=== PATIENT | male | born 1965 | race Caucasian/White ===

== ENCOUNTER 2017-07-11 03:11 | Inpatient (IN) | payer OTHER ==
[~2017-07-11] VITALS: Ht 182.9 cm; Wt 95.3 kg
[~2017-07-11 03:11] MED LIST: CYMBALTA60 MG PO; DILAUDID 4 MG TA4 MG PO; MULTIVITAMIN1 TAB PO; NEURONTIN800 M1 PO; OXYCONTIN20 M1 PO; OXYCONTIN20 MG PO; PERCOCET 5-3251 EACH PO; ROBAXIN-750750 M1 PO; ROBAXIN-750750 MG PO; VITAMIN C500 M3 PO
--- NOTE | 2017-07-11 13:12 | RADIOLOGY REPORT ---
EXAMINATION: CR LUMBAR SPINE CLINICAL INFORMATION: L3-S1 TLI F. COMPARISON: None TECHNIQUE: Single lateral view of the lumbar spine was performed. FINDINGS: A forceps is seen overlying the posterior elements of the L5 vertebral body. IMPRESSION: Localization of the posterior elements of L5.
--- NOTE | 2017-07-11 14:11 | Operative Report ---
Operative/Inv Procedure Report Surgery Date: 07/11/17 Name of Procedure: L3, 4, 5 S1 complete laminectomies, bilateral osteotomies L34 L4 5 L5-S1. L3 4 TLIF, L4 5 TLIF, L5-S1 TLIF. Insertion of L3 4 interbody 12 x 28 mm titanium cage. Insertion of L4 5 11 x 28 interbody cage. Insertion of L5-S1 9 x 28 mm interbody cage. L3-L4- L5-S1 posterior lateral arthrodesis utilizing autologous bone graft iliac crest graft aspirate. L3 4 L5-S1 posterior lateral segmental Ezra titanium instrumentation. Procedure performed stereotactically. Resection of L4 5 synovial cyst via laminectomy. Pre-Operative Diagnosis: Lumbar spondylosis lumbar degenerative disc disease lumbar disc herniation Post-Operative Diagnosis: same Estimated Blood Loss: 800cc Surgeon/Certified Master Locksmith: Patel Kerr MD and Ying Hoffmann MD Anesthesia: general endotracheal tube Operative/Procedure Note Note: Patient was brought into the operating room after undergoing endotracheal intubation Hauser catheterization Venodyne's were placed over both lower extremities. Patient was placed prone the back was kept flat on an OSI table all bony prominences well-padded. The back was prepped with Betadine soap and solution and draped in usual sterile fashion. An incision was made in the midline between the L3 and the S1 vertebra and developed down to the length subcutaneous teeniest tissues. The paraspinal muscles were mobilized out laterally to the level of the transverse processes exposing the L3 L4 L5 transverse process and the ala of S1. This point working with a bone scalpel the lamina of L3 L4 L5 and top of S1 were resected complete with complete foraminotomies and bilateral osteotomies at each level LIII 4 L4 5 and L5-S1. The bone was harvested morcellized and later use in the arthrodesis. The more us separate stab incision was made over the right iliac crest and iliac crest graft aspirate was now mixed in with the autologous bone graft for the arthrodesis. The disc spaces were now entered at L3 4 L4 5 and L5-S1 with an 11 blade and removed a combination of straight and curved rongeurs and straight and curved curettes. The endplates were now partially decorticated and the cartilaginous end plates were removed at L3 4 L4 5 and L5-S1. At L3 4 1 12 x 28 mm interbody cage was centrally filled with autologous bone graft. The space was packed with autologous bone graft and then the cage was tapped across the midline. Similarly at L45 the disc space was packed with autologous bone graft and a titanium cage was centrally packed and tapped across the midline. At L5- S1 a titanium cage was packed with autologous bone graft and after putting autologous bone graft and the interspace was tapped across the midline as well. Copious amounts of bacitracin irrigation were used. This point the transverse processes were decorticated L3 L4-L5 and S1 and morselized bone was placed over the decorticated surfaces posterolaterally. Steritek the coordinates were obtained and under stereotactic guidance pedicle screws and now placed at L3 L4 L5 and S1 bilaterally. Screws by [employer] titanium instrumentation. Screws were all stimulated and found to stimulate above 20 mA. 2 rods were now secured to the polyaxial screws under compression. A #7 flat KARLA drain was placed and removed through separate stab incision. The paraspinal muscles and fascia were reapproximated using interrupted 0 Vicryls inverted 2-0 Vicryl subcutaneous teeniest tissues and then subcuticular closure for the skin. She was taken extubated to the recovery room having tolerated procedure well.
--- NOTE | 2017-07-11 14:45 | Operative Report ---
Operative/Inv Procedure Report Surgery Date: 07/11/17 Name of Procedure: 1. Bilateral L3, L4, L5 pars osteotomies 2. Wide L3, L4, L5, S1 laminectomy, complete L3/4, L4/5, L5/S1 facetectomies, far lateral discectomies, resection of right L4/5 synovial cyst 3. L3/4, L4/5, L5/S1 transforaminal lumbar interbody fusion with Ezra tritanium interbody cages, autograft, iliac crest bone marrow aspirate 4. L3/4, L4/5, L5/S1 posterior lateral arthrodesis with Ezra deidra 3 pedicle screws and rods, autograft, iliac crest bone marrow aspirate 5. O arm neuro navigation 6. Right iliac crest bone marrow aspirate Pre-Operative Diagnosis: L3 4, L4 5, L5-S1 severe spinal stenosis, advanced facet arthrosis, spondylosis Post-Operative Diagnosis: same Estimated Blood Loss: 1100cc Surgeon/Stoker Erector: Shun INGRAM,Patel Merritt MD Anesthesia: general endotracheal tube Monitors: neurophysiologic monitoring IV Fluids: 2200 cc crystalloid, 600cc cell saver Implants: ezra Urine Output: 350cc via fish Drains: med HV Specimens: L3/4, L4/5, L5/S1 disc material, right L4/5 synovial cyst Microbiology: none Tourniquet: none Complications: none Condition: stable Operative Indication: Patient is a 51-year-old gentleman status post a work injury who presents with intractable back and bilateral lower extremity pain and paresthesias which has failed to respond to a prolonged course of comprehensive conservative treatment. Imaging studies identify multilevel lumbar degenerative changes with spinal stenosis at L3 4, L4 5, and L5-S1 including significant foraminal compression of the exiting roots. In light of the patient's failure to respond to nonoperative treatment, he now presents for surgical decompression and instrumented fusion from L3 to S1. Operative/Procedure Note Note: Patient was taken the operating room. After appropriate patient identification and surgical timeout, neurophysiologic monitoring leads were placed and baseline recordings were obtained. The patient then underwent the smooth induction of general endotracheal anesthesia without incident. Following intubation monitoring was stable. A Fish catheter was sterilely inserted. DVT prophylaxis was utilized throughout the case. Patient was given 1 g of IV vancomycin in Preoperative Prophylaxis. With All Tubes and Lines Secured, the Patient Was Carefully Turned to the Prone Position on the Diogenes Frame Taking Care to Ensure That All Pressure Points Were Well-Padded. Monitoring Was Stable Following the Turn.The Low Back Was Widely Prepped and Draped Usual Sterile Fashion Using Probe Iodine Solution. A Vertical Midline Skin Incision Was Marked from L3 to the sacrum and Infiltrated with 10 ML of Local Anesthetic. Skin incision was made with a 10 blade knife. Dissection was carried down through subcutaneous tissue with the Bovie to the lumbodorsal fascia. The fascia was incised and a subperiosteal dissection of the lumbar paravertebral muscles was performed exposing the underlying spinous processes lamina and facets from L3 to S1 bilaterally and self-retaining retractors were placed beneath the muscle. A [place] 4 elevator was placed under the presumed L4 lamina and intraoperative lateral lumbar x-rays obtained to confirm the correct level. With the correct level verified, we then proceeded to expose the transverse processes from L3 to L5 as well as the sacral ala bilaterally and they were decorticated with a high-speed drill. The joints were noted to be markedly hypertrophic and a Synovial cyst off the right L4 5 facet was encountered and resected. The Specimen sent to the back table. We then focused our attention to the decompression. A complete laminectomy from L3 to S1 was completed using a combination of the bone scalpel, small straight and angled curettes and Kerrison rongeurs. Thickened ligamentum flavum was gently elevated and resected allowing excellent decompression of the thecal sac. Bilateral pars osteotomies were then performed at L3, L4, and L5 using combination the bone scalpel and a Kerrison rongeurs and total facetectomies were completed. All bone was saved and passed to the back table for subsequent arthrodesis. Pedicles were skeletonized at L3, L4, L5, and S1 bilaterally and the exiting and traversing roots were widely decompressed on both sides. We then focused our attention to the discectomies. Using a far lateral approach , discectomies were completed at L3/4 and L5-S1 from the patient's left side and at L4 5 from the patient's right side corresponding to the areas of greatest foraminal compression. The dural sac was gently mobilized to the midline, the underlying disc annulus was coagulated with a bipolar and incised in a rectangular fashion with an 11 blade knife and discectomies were completed with small straight and angled curettes pituitary rongeurs disc space celia and rasps until all the cartilaginous endplates were removed at all 3 levels. 20 mL of right iliac crest bone marrow aspirate was then taken via a Jamshidi needle and added to the morcellated autograft. We next focused our attention to the interbody arthrodesis. Beginning at L5-S1, after appropriate trials, a 9 x 28 x 11 mm lordotic Ezra titanium peek cage was selected. It was filled with morcellated autograft and ICBM aspirate. morcellated autograft which was packed into the anterior interspace. We then tamped the L5-S1 cage into the disc space under direct visualization and countersunk the cage by approximately 2-3 mm and its final position was noted to be excellent. At L4 5, a 10 x 28 x 11 mm titanium cage was also selected after appropriate trials and packed with morcellated autograft. Morcellated autograft was packed into the anterior disc space and The L4 5 cage was then gently tamped into the interspace under direct visualization and countersunk by several millimeters and its position also confirmed and noted to be excellent. At L3 4, a 12 x 28 x 11 mm titanium cage was selected and packed with morcellated autograft. autograft were carefully packed into the anterior aspect of the L3 4 disc space followed by the cage was gently tamped into the interspace and countersunk by 2 or 3 mm and its final position confirmed and noted to be excellent. With all cages in position, we then proceeded to the posterior lateral arthrodesis. The O arm reference arc was then fixed to the right iliac crest did AP and lateral x-rays were obtained with the O arm followed by a spin. Reconstructions were completed and confirmed. We then used live navigation to place all of the posterior lateral hardware. Prior to placing the pedicle screw instrumentation, bone graft moistened with iliac crest bone marrow aspirate was packed over the transverse processes from L3 to the sacral alar bilaterally. Entry points for Ezra xia3 pedicle screws were selected using the O arm at the junction of the pars interarticularis transverse process and inferomedial aspect of the rostral facet. All screws were placed by piercing the bone with the drill, traversing the pedicle with a gearshift under the hole with a ball- tipped probe, and screw placed with power. We began at L3. 6.5 x 50 mm screw was placed bilaterally. At L4, 6.5 x 45 mm screws were placed bilaterally, at L5, 6.5 x 45 mm screws were placed bilaterally and at S1, 6.5 x 40 mm screws were placed bilaterally. Once all screws were in position, they were stimulated with thresholds greater than 20 mA at all locations. With all the screws in position, we then obtained a second spin of the O arm and completed the reconstructions to ensure good hardware positioning. All cages were in excellent position. With all screws in position, we then top loaded 80 mm titanium gabbie on the right and a 90 mm gabbie on the left and locking caps were placed. Screws were then finally tightened using antitorque device. Was copiously irrigated with bacitracin and sterile saline irrigation. Epidural bleeding was controlled using FloSeal, Surgifoam and cottonoid patties and points of muscle bleeding were controlled with the bipolar electrocautery. A medium Hemovac drain was placed into the wound and secured to the skin with a 2- 0 nylon suture. 1 g of vancomycin powder was gently used to cover the cut muscle and soft tissue surfaces in the wound and we then began closure. 10 mL of long-acting local anesthetic was placed in the paraspinal muscle. Deep muscle was reapproximated with interrupted 0 Vicryl suture. Subcutaneous tissue was closed in layers with interrupted oh and 2-0 Vicryl suture. The skin was closed with young. The wounds were cleaned and dried. Bacitracin and sterile occlusive dressings were placed. The reference arc was removed from the right iliac crest. That wound was irrigated, closed in layers in the subcutaneous tissue with Vicryl suture and young in the skin. It was cleaned and dried and a sterile occlusive dressing was placed. At the completion of the case, all sponge needle and injuring counts were correct at the completion of the procedure 3. Neurophysiologic monitoring was stable throughout the case. Patient was returned to the supine position, awakened extubated and taken to PACU in stable condition. Findings: Multilevel stenosis, advanced facet arthrosis, synovial cysts Discharge Disposition: PACU
--- NOTE | 2017-07-11 15:53 | RADIOLOGY REPORT ---
EXAMINATION: XR LUMBOSACRAL SPINE CLINICAL INFORMATION: L3-S1 transforaminal interbody fusion. COMPARISON: None TECHNIQUE: Intraoperative CT and fluoroscopic imaging of the lumbosacral spine was performed. FLUOROSCOPY exposure time: 9.87 seconds and DAP of 320.33 Rcm2. DLP: 1097 mGycm FINDINGS/IMPRESSION: Please refer to the operative report. Multilevel posterior decompression of lower lumbar spine with placement of posterolateral bone graft. There is a fracture line in the right S1 lamina. Intervertebral cages are present at L3-L4, L4-L5 and L5-S1. Postoperative soft tissue swelling and and soft tissue gas of the lower lumbar spine.
--- NOTE | 2017-07-11 16:52 | PN- Neurosurgical ---
Subjective Subjective: Postoperative check: Patient doing well, complaints of soreness in the lower back and legs. He has mild numbness to both great toes. No other complaints. Objective Vital Signs and I&Os Intake & Output 07/11 1600 07/11 0800 07/11 0000 07/10 1600 07/10 0800 07/10 0000 Intake Total Output Total Balance Patient 210 lb Weight Vital signs stable, afebrile Physical Exam: Well-developed well-nourished no apparent distress. HEENT: Atraumatic, extraocular motion intact Neck: Supple, no lymphadenopathy Respiratory: No respiratory distress Back: Dressing intact, Hemovac in place, dark blood noted in the Hemovac Extremities: No edema, no calf pain Neuro: Alert and oriented x3 BLE nvi w sensation and motor grossly intact. slight decreased senation B great toes Psych: Mood affect normal, normal memory normal judgment. in good spirits Skin: Warm and dry, no rash on exposed skin Assessment/Plan Assessment/Plan Postop day #1 SP L3/4, L4/5, L5/S1 bilateral laminectomies, discectomies and fusion Perioperative antibiotics. Pain medication as needed. Dilaudid CATEGORY DEVELOPMENT MANAGER for now Physical therapy in a.m., out of bed IV fluids cont fish Regular diet Continue Hemovac drain Heparin for DVT prophylaxis ALPS for DVT prophylaxis Regular home meds Dressing change postop day 2 Core Measures Venous Thromboembolism VTE Risk Factors Surgery No Mechanical VTE Prophylaxis d/t N/A MechProphylax Ordered No VTE Pharm Prophylaxis d/t NA PharmProphylax ordered
[2017-07-11 17:00] VITALS: BP 126/90
--- NOTE | 2017-07-11 21:12 | Event Note ---
Event Note Event Note: Called by RN to tell me that pt is complaining of left inner arm numbness from his elbow down to 4th and 5th fingers. Upon talking to the patient, he states that he has had this numbness since he woke up from surgery. No tingling sensation. Pt does not remember hitting it on anything and his no other pain besides his lower back from surgery and he states he always has some degree of lower neck discomfort which he had a prior surgery for as well. On exam, motor function and strength are equal bilaterally, pt denies sensation to the medial left lower arm, 5th finger and the adjacent medial aspect of the 4th finger. capillary refill is good, hand is warm. Pt is stable at this time. The numbness appears to be in an ulnar distribution and could possibly be from position during surgery. Rec offloading left elbow. Will re-eval in AM. Will make Dr. Hoffmann aware.
[2017-07-11 21:59] VITALS: BP 130/90
[2017-07-12 06:18] VITALS: BP 126/74
--- NOTE | 2017-07-12 08:10 | PN- Neurosurgical ---
Subjective Subjective: CO pain, LAUNCH CHECK OUT helps initially some but he does not get sustained relief. has mild tingling sensation to the L ulnar nerve distribution, feels it is getting better this am when compared to last night. Also complains of mild tingling sensation and numbness to the left thigh and left and right great toes. No weakness, no shorty numbness. Preoperative symptoms of calf pain has completely resolved Objective Vital Signs and I&Os Vital Signs Date Time Temp Pulse Resp B/P B/P Pulse O2 O2 Flow FiO2 Mean Ox Delivery Rate 07/12 0618 97.7 83 18 126/74 93 Room Air 07/11 2159 97.6 93 18 130/90 95 Room Air 07/11 1843 Room Air Room Air 07/11 1700 98.3 80 16 126/90 07/11 1700 98.3 80 16 126/90 97 Room Air Room Air Intake & Output 07/12 1600 07/12 0800 07/12 0000 07/11 1600 07/11 0800 07/11 0000 Intake Total 1280 640 Output Total 2125 1170 Balance -845 -530 Intake, IV 800 400 Intake, Oral 480 240 Output, 250 170 Drainage Output, Urine 1875 1000 Patient 210 lb Weight Weight Reported by Patient Measurement Method Physical Exam: Well-developed well-nourished no apparent distress. HEENT: Atraumatic, extraocular motion intact Neck: Supple, no lymphadenopathy Respiratory: No respiratory distress Back: Dressing clean dry and intact, drain site with minimal bloody drainage around it. Hemovac Drain with dark red blood noted Extremities: No edema, no calf pain Neuro: Alert and oriented x3 Bilateral upper extremities and lower extremities are neurovascularly intact with sensation motor grossly intact with very mild decreased sensation noted in the ulnar nerve distribution of the left upper extremity, left anterior thigh, left and right great toes. No weakness with EHL extension Psych: Mood affect normal, normal memory normal judgment. Skin: Warm and dry, no rash on exposed skin Results Last 48 Hours of Labs: HV drain 170/250 Assessment/Plan Assessment/Plan Postop day #2 SP L3/4, L4/5, L5/S1 bilateral laminectomies, discectomies and fusion Perioperative antibiotics until drain removed. Pain medication as needed. Dilaudid LAUNCH CHECK OUT ineffective, DC and place on Oxycodone and IV tylenol, Iv dilaudid for breakthrough. Physical therapy oob with back brace DC IV fluids Hauser removed, dtv Regular diet Continue Hemovac drain, 250cc last 8hrs. Heparin for DVT prophylaxis ALPS for DVT prophylaxis Regular home meds mild LUE ulnar nerve distribution, likely OR positional, resolving Dressing change postop day 2 Core Measures Venous Thromboembolism VTE Risk Factors Surgery No Mechanical VTE Prophylaxis d/t N/A MechProphylax Ordered No VTE Pharm Prophylaxis d/t NA PharmProphylax ordered
[2017-07-12 10:42] VITALS: BP 122/78
--- NOTE | 2017-07-12 11:53 | PN- Neurosurgical ---
Subjective Subjective: Pt doing well. Reports mild numbness anterior left thigh, otherwise no pain in LE. Mod to severe LBP over night not well controlled with PLUMBER APPRENTICE. Objective Vital Signs and I&Os Vital Signs Date Time Temp Pulse Resp B/P B/P Pulse O2 O2 Flow FiO2 Mean Ox Delivery Rate 07/12 1042 97.9 78 20 122/78 97 Room Air 07/12 0618 97.7 83 18 126/74 93 Room Air 07/11 2159 97.6 93 18 130/90 95 Room Air 07/11 1843 Room Air Room Air 07/11 1700 98.3 80 16 126/90 07/11 1700 98.3 80 16 126/90 97 Room Air Room Air Intake & Output 07/12 1600 07/12 0800 07/12 0000 07/11 1600 07/11 0800 07/11 0000 Intake Total 1280 640 Output Total 100 2125 1170 Balance -100 -845 -530 Intake, IV 800 400 Intake, Oral 480 240 Output, 250 170 Drainage Output, Urine 100 1875 1000 Patient 95.254 kg Weight Weight Reported by Patient Measurement Method Physical Exam: AF, VSS inicision is c,d,i flat HV with 250cc over night serosanguinous neuro intact bilat LE except patch of hypesthesia left ant thigh abd soft voiding on own ate breakfast this am Current Medications: Current Medications Sig/Aga Start time Last Medication Dose Route Stop Time Status Admin Acetaminophen 1,000 MG Q6H 07/12 0830 AC N/A 1 UNIT IV 07/13 0244 Acetaminophen 650 MG Q4P PRN 07/11 1600 DC PO Bisacodyl 10 MG DAILY NEEDED PRN 07/11 1600 AC OR Cefazolin Sodium 2 GM IQ8 07/12 0800 CAN N/A 1 UNIT IV 07/13 0759 Cefazolin Sodium 2,000 MG ONCE 07/11 0000 DC IV 07/11 2359 Diazepam 5 MG Q8P PRN 07/11 1600 AC 07/12 PO 0654 Docusate Sodium 100 MG TID 07/11 1600 AC 07/12 PO 0920 Heparin Sodium 5,000 UNIT Q8 07/12 0600 AC 07/12 (Porcine) SC 0503 Hydromorphone HCl 1 MG Q2-3 HRS NEEDED.. 07/12 0830 AC 07/12 IV 0919 Hydromorphone HCl 2 MG .STK-MED ONE 07/11 1543 DC IM 07/11 1544 Hydromorphone HCl 2 MG .STK-MED ONE 07/11 1527 DC IM 07/11 1528 Hydromorphone HCl 2 MG .STK-MED ONE 07/11 1515 DC IM 07/11 1516 Hydromorphone HCl 2 MG .STK-MED ONE 07/11 1507 DC IM 07/11 1508 Hydromorphone HCl 50 MG Q24H PRN 07/11 1500 DC Sodium Chloride 45 ML IV Hydromorphone HCl 2 MG .STK-MED ONE 07/11 1451 DC IM 07/11 1452 Influenza Virus 0.5 ML ONCE ONE 07/11 1745 DC Vaccine IM 07/11 1746 Ketorolac 15 MG Q6P PRN 07/11 1545 DC Tromethamine IV 07/16 1544 Meperidine HCl 50 MG .STK-MED ONE 07/11 1507 DC IM 07/11 1508 Meperidine HCl 50 MG .STK-MED ONE 07/11 1452 DC IM 07/11 1453 Ondansetron HCl 4 MG Q6P PRN 07/11 1600 AC IV Oxycodone HCl 5 MG Q4P PRN 07/12 0830 AC PO Oxycodone HCl 10 MG Q4P PRN 07/12 0830 AC 07/12 PO 1038 Oxycodone/ 2 TAB Q4P PRN 07/11 1545 DC Acetaminophen PO Patient Medication 1 ED ONE ONE 07/12 1130 DC 07/12 Teaching ED 07/12 1131 1126 Remifentanil HCl 4 MG .STK-MED ONE 07/11 1228 DC IV 07/11 1229 Senna 374 MG QPM PRN 07/11 1600 AC PO Sodium Chloride 1,000 ML Q10H 07/11 1545 DC 07/12 IV 07/12 1144 0200 Trimethobenzamide HCl 200 MG Q6P PRN 07/11 1600 AC IM Vancomycin HCl 1,000 MG Q12 07/12 1000 AC 07/12 Dextrose/Water 250 ML IV 07/13 0959 0919 Vancomycin HCl 1,000 MG ONCE 07/11 0000 DC Dextrose/Water 250 ML IV 07/11 2359 Assessment/Plan Assessment/Plan Pt POD1 s/p L3/4, L4/5, L5/S1 TLIF and doing well. Plan: -OOB to chair, ambulating with brace -reg diet, HLIV -DVT prophylaxis -Vanco until drain out -drain until less than 50cc per shift -PT for gait, pt to go home when ready from neurosurg perspective and doubt he would require STR -IS use 10x/hr - pt pulling 4L of volume presently Core Measures Venous Thromboembolism VTE Risk Factors Surgery No Mechanical VTE Prophylaxis d/t N/A MechProphylax Ordered No VTE Pharm Prophylaxis d/t NA PharmProphylax ordered Attending MD Review Statement Attending Statement Attending MD Statement: examined this patient, discuss w/resident/PA/MARINE MECHANIC, discussed w/nursing
[2017-07-12 14:19] VITALS: BP 124/82
[2017-07-12 18:00] VITALS: BP 124/70
[2017-07-12 22:05] VITALS: BP 130/68
[2017-07-13] VITALS (7 sets, daily range): BP systolic 108–146; BP diastolic 64–93
--- NOTE | 2017-07-13 07:49 | PN- Neurosurgical ---
Subjective Subjective: Pain better this am. No new complaints. Objective Vital Signs and I&Os Vital Signs Date Time Temp Pulse Resp B/P B/P Pulse O2 O2 Flow FiO2 Mean Ox Delivery Rate 07/13 0642 98.7 98 18 108/70 97 Room Air 07/13 0147 98.8 101 18 118/64 93 Room Air 07/12 2205 98.0 90 18 130/68 94 Room Air 07/12 1800 98.0 110 19 124/70 95 Room Air 07/12 1419 98.0 96 18 124/82 97 Room Air 07/12 1042 97.9 78 20 122/78 97 Room Air Intake & Output 07/13 0800 07/13 0000 07/12 1600 07/12 0800 07/12 0000 07/11 1600 Intake Total 266 186 8901 1280 640 Output Total 0847 237 5557 2125 1170 Balance -1085 20 -150 -845 -530 Intake, IV 260 250 400 800 400 Intake, Oral 240 720 900 480 240 Number 0 0 0 Bowel Movements Output, 60 100 150 250 170 Drainage Output, Urine 3888 684 4071 1875 1000 Patient 95.254 kg Weight Weight Reported by Patient Measurement Method Physical Exam: AF, VSS HV with 60cc over night neuro exam intact except patch of sensory hypesthesia anterolat left thigh ambulated with PT yest, did stairs incision with min serosanguinous drainage, reinforced sonya po well voiding on own Current Medications: Current Medications Sig/Aga Start time Last Medication Dose Route Stop Time Status Admin Acetaminophen 1,000 MG Q6H 07/12 1800 DC 07/13 N/A 1 UNIT IV 07/13 0614 0620 Acetaminophen 1,000 MG Q6H 07/12 0830 DC 07/12 N/A 1 UNIT IV 07/13 0244 1152 Acetaminophen 650 MG Q4P PRN 07/11 1600 DC PO Bisacodyl 10 MG DAILY NEEDED PRN 07/11 1600 AC [place] Diazepam 5 MG Q8P PRN 07/11 1600 AC 07/12 PO 2013 Docusate Sodium 100 MG TID 07/11 1600 AC 07/12 PO 210 Heparin Sodium 5,000 UNIT Q8 07/12 0600 AC 07/13 (Porcine) SC 0511 Hydromorphone HCl 1 MG Q2-3 HRS NEEDED.. 07/12 0830 AC 07/13 IV 0741 Hydromorphone HCl 50 MG Q24H PRN 07/11 1500 DC Sodium Chloride 45 ML IV Ketorolac 15 MG Q6P PRN 07/11 1545 DC Tromethamine IV 07/16 1544 Ondansetron HCl 4 MG Q6P PRN 07/11 1600 AC IV Oxycodone HCl 5 MG Q4P PRN 07/12 0830 AC PO Oxycodone HCl 10 MG Q4P PRN 07/12 0830 AC 07/13 PO 0620 Oxycodone/ 2 TAB Q4P PRN 07/11 1545 DC Acetaminophen PO Patient Medication 1 ED ONE ONE 07/12 1130 DC 07/12 Teaching ED 07/12 1131 1126 Senna 374 MG QPM PRN 07/11 1600 AC PO Sodium Chloride 1,000 ML Q10H 07/11 1545 DC 07/12 IV 07/12 1144 0200 Trimethobenzamide HCl 200 MG Q6P PRN 07/11 1600 AC IM Vancomycin HCl 1,000 MG Q12 07/12 1000 AC 07/12 Dextrose/Water 250 ML IV 07/15 7131 5367 Assessment/Plan Assessment/Plan A/P: Pt POD2 s/p L3-S1 decompressiona and fusion and doing well. -OOB with brace -reg diet -dc HV when 50cc per shift or less, abx until drain out -likely dc home with PT, VNA tomorrow if drain out -DVT prophylaxis, IS use Core Measures Venous Thromboembolism VTE Risk Factors Surgery No Mechanical VTE Prophylaxis d/t N/A MechProphylax Ordered No VTE Pharm Prophylaxis d/t NA PharmProphylax ordered Attending MD Review Statement Attending Statement Attending MD Statement: examined this patient, discuss w/resident/PA[employer], discussed w/nursing
[2017-07-14 04:00] VITALS: BP 130/70
[2017-07-14 07:39] VITALS: BP 132/76
--- NOTE | 2017-07-14 10:32 | Surg Short-stay <48hrs Dis Sum ---
Visit Information Visit Dates Admission Date: 07/11/17 Discharge Date: 07/14/17 Surgical Short Stay DC Summary Admission Diagnosis: L3-4, L4-5, L5-S1 severe spinal stenosis, advanced facet arthrosis, spondylosis Final Diagnosis: SAME ABOVE, S/P Surgery Date: 07/11/17 Name of Procedure: 1. Bilateral L3, L4, L5 pars osteotomies 2. Wide L3, L4, L5, S1 laminectomy, complete L3/4, L4/5, L5/S1 facetectomies, far lateral discectomies, resection of right L4/5 synovial cyst 3. L3/4, L4/5, L5/S1 transforaminal lumbar interbody fusion with Orrtanna tritanium interbody cages, autograft, iliac crest bone marrow aspirate 4. L3/4, L4/5, L5/S1 posterior lateral arthrodesis with Ezra deidra 3 pedicle screws and rods, autograft, iliac crest bone marrow aspirate 5. O arm neuro navigation 6. Right iliac crest bone marrow aspirate Procedure(s): Surgery Date: 07/11/17 Name of Procedure: 1. Bilateral L3, L4, L5 pars osteotomies 2. Wide L3, L4, L5, S1 laminectomy, complete L3/4, L4/5, L5/S1 facetectomies, far lateral discectomies, resection of right L4/5 synovial cyst 3. L3/4, L4/5, L5/S1 transforaminal lumbar interbody fusion with Orrtanna tritanium interbody cages, autograft, iliac crest bone marrow aspirate 4. L3/4, L4/5, L5/S1 posterior lateral arthrodesis with Orrtanna deidra 3 pedicle screws and rods, autograft, iliac crest bone marrow aspirate 5. O arm neuro navigation 6. Right iliac crest bone marrow aspirate Summary/Significant Findings: Operative Indication: Patient is a 51-year-old gentleman status post a work injury who presents with intractable back and bilateral lower extremity pain and paresthesias which has failed to respond to a prolonged course of comprehensive conservative treatment. Imaging studies identify multilevel lumbar degenerative changes with spinal stenosis at L3 4, L4 5, and L5-S1 including significant foraminal compression of the exiting roots. In light of the patient's failure to respond to nonoperative treatment, he now presents for surgical decompression and instrumented fusion from L3 to S1. Surgery Date: 07/11/17 1. bilateral L3, L4, L5 pars osteotomies 2. wide L3, L4, L5, S1 laminectomy, complete L3/4, L4/5, L5/S1 facetectomies, far lateral discectomies, resection of right L4/5 synovial cyst 3. L3/4, L4/5, L5/S1 transforaminal lumbar interbody fusion with Orrtanna tritanium interbody cages, autograft, iliac crest bone marrow aspirate 4. L3/4, L4/5, L5/S1 posterior lateral arthrodesis with Ezra deidra 3 pedicle screws and rods, autograft, iliac crest bone marrow aspirate 5. Right iliac crest bone marrow aspirate Routine post-operative care/course, including titrating pain medication from iv to oral. Diet advancement as tolerated. Antibiotics continued until hemovac drain was removed. Mobilization as tolerated with specified restrictions. Condition at Discharge: stable Discharge Disposition: home or self care Discharge instructions provided to patient/family: Yes Post discharge follow-up plan: 2 week follow up with
--- NOTE | 2017-07-14 10:36 | Patient Discharge Instructions ---
Discharge Instructions General Discharge Information You were seen/treated for: L3-4, L4-5, L5-S1 severe spinal stenosis, advanced facet arthrosis, spondylosis You had these procedures: Surgery Date: 07/11/17 Name of Procedure: 1. Bilateral L3, L4, L5 pars osteotomies 2. Wide L3, L4, L5, S1 laminectomy, complete L3/4, L4/5, L5/S1 facetectomies, far lateral discectomies, resection of right L4/5 synovial cyst 3. L3/4, L4/5, L5/S1 transforaminal lumbar interbody fusion with Ezra tritanium interbody cages, autograft, iliac crest bone marrow aspirate 4. L3/4, L4/5, L5/S1 posterior lateral arthrodesis with Ezra deidra 3 pedicle screws and rods, autograft, iliac crest bone marrow aspirate 5. O arm neuro navigation 6. Right iliac crest bone marrow aspirate Watch for these problems: FEVER>101.3, INCREASED PAIN, REDNESS/SWELLING/DRAINAGE, PARESTHESIAS/WEAKNESS, DIZZINESS, SHORTNESS OF BREATH, CHEST PAINS Call Surgeon to remove: Edie No bath, but you may shower: Yes Other wound care: SHOWER WITH OCCLUSIVE DRESSING Diet Continue normal diet: Yes Recommended Diet: Regular Activity Full Activity/No Limits: No Activity Self Limited: Yes Pounds, do NOT lift more than: 5 Activity Limited to: Weight bear as tolerated Other activity limits: NO HEAVY LIFTING. NO STRENUOUS ACTIVITY. Acute Coronary Syndrome Inclusion Criteria At DC or during hospital stay patient has or had the following: ACS DIAGNOSIS No Discharge Core Measures Meds if any: Prescribed or Continued at Discharge Meds if any: NOT Prescribed or Continued at Discharge Congestive Heart Failure Inclusion Criteria At DC or during hospital stay patient has or had the following: CHF DIAGNOSIS No Discharge Core Measures Meds if any: Prescribed or Continued at Discharge Meds if any: NOT Prescribed or Continued at Discharge Cerebrovascular accident Inclusion Criteria At DC or during hospital stay patient has or had the following: CVA/TIA Diagnosis No Discharge Core Measures Meds if any: Prescribed or Continued at Discharge Meds if any: NOT Prescribed or Continued at Discharge Venous thromboembolism Inclusion Criteria VTE Diagnosis No VTE Type NONE VTE Confirmed by (Test) NONE Discharge Core Measures - Per Current guidelines, there needs to be overlap - treatment for the first 5 days of Warfarin therapy. - If discharged on Warfarin prior to 5 days of - overlap therapy, the patient will need to be - assessed for post discharge needs including - *Post discharge parental anticoagulation - *Warfarin and/or parental anticoagulation education - *Follow up date to check INR post discharge At least 5 days overlap therapy as Inpatient No Meds if any: Prescribed or Continued at Discharge Note: Overlap Therapy is Warfarin and Anticoagulant Meds if any: NOT Prescribed or Continued at Discharge
[2017-07-14] MEDS ORDERED: DOCUSATE SODIU100 M3 PO (10:39)
[2017-07-14] MEDS ORDERED: PERCOCET 5-3251 EACH PO (10:39)
[2017-07-14] MEDS ORDERED: OXYCONTIN15 M1 PO (10:39)
[2017-07-14] MEDS ORDERED: VALIUM5 M2 PO (11:43)
[2017-07-14 11:55] VITALS: BP 128/60
[2017-07-14] MEDS ORDERED: RW (11:55)
[2017-07-14 13:58] VITALS: BP 140/90
== END 2017-07-14 15:44 | DRG 455 ==
LOC: SDA 03:11 → ENRESERV 15:23 → ENTRNSPT 16:11 → EDTRNSPTSTS 16:32 → EDTRNSPT 16:32 → 2NB 16:42 → CMPTRNSPT 16:49 → ENPENDDIS 07-14 11:06 → ENTRNSPT 07-14 15:26 → 2NB 07-14 15:44 → CMPTRNSPT 07-14 15:59
PROC: 0SG10AJ Fusion of 2 or more Lumbar Vertebral Joints with Interbody Fusion Device, Posterior Approach, Anterior Column, Open Approach (ICD-10-PCS; principal; 2017-07-11)
PROC: 0SG1071 Fusion of 2 or more Lumbar Vertebral Joints with Autologous Tissue Substitute, Posterior Approach, Posterior Column, Open Approach (ICD-10-PCS; 2017-07-11)
PROC: 0ST20ZZ Resection of Lumbar Vertebral Disc, Open Approach (ICD-10-PCS; 2017-07-11)
PROC: 0ST40ZZ Resection of Lumbosacral Disc, Open Approach (ICD-10-PCS; 2017-07-11)
DX: M48.07 Spinal stenosis, lumbosacral region (principal)
CPT/HCPCS: 2NBP; 72020; 72100; 87086; 97116-GO; 97161-GP; C9290; J0131; J0690; J1170; J1644; J2405; J3250; J3370; J7040; J7060